=== PATIENT | male | born 1955 | race Caucasian/White ===

== ENCOUNTER → 2019-07-26 13:08 | Outpatient (CLI) | payer BC, SELFPAY ==
--- NOTE | 2019-07-26 | DI.MRI.S_ITS ---
PROCEDURE: MR KNEE LT WO CON INDICATIONS: Unspecified internal derangement of left knee TECHNIQUE: [facility] [employer] protocol was performed. Noncontrast sagittal PD fast spin echo and T2 fast spin echo with fat saturation, sagittal 3-D FLASH with fat saturation; coronal T1 spin echo and PD fast spin echo with fat saturation, and axial PD fast spin echo with fat saturation through the knee. COMPARISON: [facility], CR, XR KNEE ARTHRITIC SERIES LT, 06/05/2019, 8:59. FINDINGS: Image quality: Excellent. Menisci: There is complex tear involving the body and posterior horn of the medial meniscus. There may be a radial tear in the peripheral aspect of the body of the lateral meniscus. There is degenerative tear of the posterior horn of the lateral meniscus. The meniscal root ligaments appear intact. Cruciate ligaments: The anterior and posterior cruciate ligaments appear intact. Medial structures: The medial collateral ligament appears intact. The posterior oblique ligament, semimembranosus tendon insertions, oblique popliteal ligament, and meniscocapsular junction appear intact. Visualized portions of the pes anserinus tendons appear normal. No abnormal bursal fluid. Lateral structures: The lateral collateral ligament, long and short heads of the biceps femoris tendon appear intact. The popliteus tendon appears normal; the popliteofibular ligament appears intact. The posterosuperior and anteroinferior popliteomeniscal fascicles appear intact. The arcuate and fabellofibular ligaments appear intact, on either side of the lateral inferior geniculate artery. Iliotibial band appears normal. Anterior structures: The quadriceps and patellar tendons appear intact. Patellar alignment is normal. No femoral trochlear dysplasia or ventral trochlear prominence. No edema in the infrapatellar fat pad. Bones and cartilage: No bone marrow contusions or fractures. There is tricompartmental cartilage thinning and fibrillation. Joint space: There is small knee joint fluid. Small Rivera's cyst. Normal appearing synovial plicae are incidentally noted. IMPRESSION: 1. Complex tear of the body and posterior horn the medial meniscus. 2. Possible radial tear of the body of the lateral meniscus. There is degenerative tear of the posterior horn of the lateral meniscus. 3. Tricompartmental cartilage thinning and fibrillation. 4. Small knee joint effusion. 5. Small Rivera's cyst. Dictated by: Mick Clark M.D. on 07/26/2019 at 14:52 Approved by: Mick Clark M.D. on 07/26/2019 at 17:54
== END ==
PROVIDERS: Referring Provider Orthopaedic Surgery; Visit Provider Orthopaedic Surgery
DX: S83.232A Complex tear of medial meniscus, current injury, left knee, initial encounter (principal); S83.282A Other tear of lateral meniscus, current injury, left knee, initial encounter; M71.22 Synovial cyst of popliteal space [Baker], left knee; M25.462 Effusion, left knee
CPT/HCPCS: 73721